=== PATIENT | male | born 1955 | race Caucasian/White ===

== ENCOUNTER → 2017-06-23 | Outpatient (CLI) | payer OTHER ==
--- NOTE | 2017-06-23 17:04 | RAD ---
Carotid ultrasound, 06/23/2017: HISTORY: Carotid stenosis, hypertension Duplex evaluation of the carotid arteries and neck was performed including grayscale, color-flow and spectral Doppler analysis. There is mild intimal thickening and smooth plaquing in the carotid arteries bilaterally. Mild calcific plaquing is seen at the left carotid bifurcation involving the proximal internal carotid artery. The proximal internal carotid arteries were not optimally visualized in this patient due to his body habitus. On the right, the peak systolic velocity in the internal carotid artery is 68 cm/s with an end-diastolic velocity of 24 cm/s. This yields an internal carotid to common carotid artery ratio of 0.6. On the left, the peak systolic velocity in the internal carotid artery is 104 cm/s with an end-diastolic velocity of 25 cm/s. The internal carotid to common carotid artery ratio on the left is 1.0. These Doppler findings do not suggest significant stenosis. Antegrade flow is present in both vertebral arteries in the neck. IMPRESSION: Mild atherosclerotic plaquing with no duplex evidence of a significant carotid stenosis in the neck. Note: Stenosis calculations for CT, MRA and conventional angiography are based upon determination of the distal ICA diameter in accordance with the NASCET methodology. Stenosis calculations for Doppler studies are derived from validated velocity criteria which are known to correlate with NASCET methodology of determining stenosis. Electronically signed by: Scooby Mckeon MD (06/23/2017 5:01 PM) [facility]
== END | disposition home or self-care (01) ==
LOC: US 10:09
PROVIDERS: ATTEND Nurse Practitioner
DX: I65.21 Occlusion and stenosis of right carotid artery (principal); I10 Essential (primary) hypertension
CPT/HCPCS: 93880